=== PATIENT | female | born 1960 | race Caucasian/White ===

== ENCOUNTER 2019-02-28 06:22 | Observation (INO) | payer BC, OTHER ==
[2019-02-28 06:57] LABS: BASO # 0.1 K/uL (0.0-0.2); BASO % 0.9 % (0.0-2.0); EOS # 0.1 K/uL (0.0-0.7); EOS % 1.2 % (0.0-4.0); LYMPH # 2.4 K/uL (1.0-4.3); LYMPH % 29.2 % (20.0-40.0); MEAN CELL VOLUME 86.9 fL (81.0-99.0); MEAN CORPUSCULAR HEMOGLOBIN 28.8 pg (27.0-31.0); MEAN CORPUSCULAR HGB CONC 33.1 g/dL (33.0-37.0); MEAN PLATELET VOLUME 8.7 fL (7.2-11.7); MONO # 0.5 K/uL (0.0-0.8); MONO % 6.6 % (0.0-10.0); NEUT # 5.2 K/uL (1.8-7.0); NEUT % 62.1 % (50.0-75.0); RBC 4.53 Mil/uL (3.80-5.20); WHITE BLOOD COUNT 8.3 K/uL (4.8-10.8)
[2019-02-28 07:01] LABS: INR 1.1; PROTHROMBIN TIME 11.7 SECONDS (9.7-12.2)
[2019-02-28] MEDS ORDERED: Nitroglycerin 2% Ointment Foilpak UD TOP STA (07:19)
[2019-02-28 07:20] LABS: ALB/GLOB RATIO 1.3 (1.0-2.1); ALT/SGPT 11 U/L (9-52); AST/SGOT 29 U/L (14-36); BLOOD UREA NITROGEN 10 mg/dL (7-17); CALCIUM 8.9 mg/dl (8.6-10.4); GFR NON-AFRICAN AMERICAN > 60
[2019-02-28] MEDS ORDERED: Nitroglycerin 2% Ointment Foilpak UD TOP ONE (07:34)
[2019-02-28] MEDS ORDERED: Aluminum Hydroxide/Magnesium Hydroxide Susp (30 mL) PO STA (08:52)
--- NOTE | 2019-02-28 08:54 | C.PDOC ---
Time Seen by Provider: 02/28/19 07:08 Chief Complaint (Nursing): Chest Pain Past Medical History Vital Signs: Last Vital Signs Temp 98.9 F 02/28/19 06:34 Pulse 65 02/28/19 07:13 Resp 20 02/28/19 07:13 BP 146/59 L 02/28/19 07:13 Pulse Ox 98 02/28/19 07:13 - Medical History PMH: Diabetes, HTN, Hypercholesterolemia, Hypothyroidism Surgical History: Appendectomy - Social History Hx Tobacco Use: No Hx Alcohol Use: No Hx Substance Use: No - Immunization History Hx Tetanus Toxoid Vaccination: No Hx Influenza Vaccination: No Hx Pneumococcal Vaccination: No ED Course And Treatment - Laboratory Results Result Diagrams: 02/28/19 06:50 02/28/19 06:50 Lab Results: PT 11.7 SECONDS (9.7-12.2) 02/28/19 06:50 INR 1.1 02/28/19 06:50 APTT 30 SECONDS (21-34) 02/28/19 06:50 Troponin I < 0.0120 ng/mL (0.00-0.120) 02/28/19 06:50 Total Bilirubin 0.6 mg/dL (0.2-1.3) 02/28/19 06:50 AST 29 U/L (14-36) 02/28/19 06:50 ALT 11 U/L (9-52) 02/28/19 06:50 Alkaline Phosphatase 61 U/L (38-126) 02/28/19 06:50 Total Protein 7.2 g/dL (6.3-8.3) 02/28/19 06:50 Albumin 4.0 g/dL (3.5-5.0) 02/28/19 06:50 Globulin 3.1 gm/dL (2.2-3.9) 02/28/19 06:50 Albumin/Globulin Ratio 1.3 (1.0-2.1) 02/28/19 06:50 O2 Sat by Pulse Oximetry: 98 Medical Decision Making Medical Decision Making: Progress/Update: 8:52am : Spoke with Dr. Ford regarding the pts case. Disposition - Disposition
--- NOTE | 2019-02-28 08:55 | C.PDOC ---
History Of Present Illness 58 year old female presents for evaluation of intermittent chest pain that started today at midnight. Pt was seen by Dr. Ford who diagnosed her with unstable angina and advised the pt to visit the ED for possible admission if symptoms worsened/returned. Denies fever, chills, dyspnea, numbness, tingling, and any other associated symptoms. Time Seen by Provider: 02/28/19 07:08 Chief Complaint (Nursing): Chest Pain History Per: Patient History/Exam Limitations: no limitations Onset/Duration Of Symptoms: Hrs Current Symptoms Are (Timing): Still Present Associated Symptoms: denies: Nausea, Dyspnea Recent travel outside of the [place]: No Past Medical History Reviewed: Historical Data, Nursing Documentation, Vital Signs Vital Signs: Last Vital Signs Temp 98.9 F 02/28/19 06:34 Pulse 65 02/28/19 07:13 Resp 20 02/28/19 07:13 BP 146/59 L 02/28/19 07:13 Pulse Ox 98 02/28/19 07:13 - Medical History PMH: Diabetes, HTN, Hypercholesterolemia, Hypothyroidism Surgical History: Appendectomy Family History: States: Unknown Family Hx - Social History Hx Tobacco Use: No Hx Alcohol Use: No Hx Substance Use: No - Immunization History Hx Tetanus Toxoid Vaccination: No Hx Influenza Vaccination: No Hx Pneumococcal Vaccination: No Review Of Systems Except As Marked, All Systems Reviewed And Found Negative. Constitutional: Negative for: Fever, Chills Cardiovascular: Positive for: Chest Pain Respiratory: Negative for: Other ((-) dyspnea. ) Neurological: Negative for: Weakness, Numbness, Incoordination Physical Exam - Physical Exam Appears: Non-toxic, No Acute Distress Skin: Warm, Dry Head: Atraumatic, Normacephalic Eye(s): bilateral: Normal Inspection Oral Mucosa: Moist Neck: Normal ROM, Supple Chest: Symmetrical, No Deformity Cardiovascular: Rhythm Regular, No Murmur Respiratory: Normal Breath Sounds, No Rales, No Rhonchi, No Wheezing Gastrointestinal/Abdominal: Soft, Tenderness (mild epigastric tenderness.) Extremity: Bilateral: Atraumatic, Normal Color And Temperature, Normal ROM Neurological/Psych: Oriented x3, Normal Speech, Normal Cognition ED Course And Treatment - Laboratory Results Result Diagrams: 02/28/19 06:50 02/28/19 06:50 Lab Results: PT 11.7 SECONDS (9.7-12.2) 02/28/19 06:50 INR 1.1 02/28/19 06:50 APTT 30 SECONDS (21-34) 02/28/19 06:50 Troponin I < 0.0120 ng/mL (0.00-0.120) 02/28/19 06:50 Total Bilirubin 0.6 mg/dL (0.2-1.3) 02/28/19 06:50 AST 29 U/L (14-36) 02/28/19 06:50 ALT 11 U/L (9-52) 02/28/19 06:50 Alkaline Phosphatase 61 U/L (38-126) 02/28/19 06:50 Total Protein 7.2 g/dL (6.3-8.3) 02/28/19 06:50 Albumin 4.0 g/dL (3.5-5.0) 02/28/19 06:50 Globulin 3.1 gm/dL (2.2-3.9) 02/28/19 06:50 Albumin/Globulin Ratio 1.3 (1.0-2.1) 02/28/19 06:50 ECG: Interpreted By Me, Viewed By Me ECG Rhythm: Sinus Rhythm Interpretation Of ECG: no acute changes. O2 Sat by Pulse Oximetry: 98 (RA) Pulse Ox Interpretation: Normal - Other Rad CXR X-Ray: Viewed By Me, Read By Radiologist Interpretation: Findings: Mild venous congestion. Patchy increased markings at the lung bases. Tortuous aorta. Mild cardiomegaly. Degenerative changes in the spine and shoulders. Impression: Mild venous congestion. Patchy increased markings at the lung bases. Tortuous aorta. Mild cardiomegaly. Medical Decision Making Medical Decision Making: Initial plan: -EKG -Blood sent. -CXR -Nitro-bid - Tylenol Progress/Update: Re-eval: Pt continues to complain of epigastric pain, given Protonix and Maalox (-) first cardiac enzyme CXR neg results 8:52am : Spoke with Dr. Ford regarding the pts case, accepted to [facility] for observation. 8:58am : Spoke with medical coding specialist regarding pts case. 9:30 am; got phone call from admitting, in "on a blue list" , can't admit now, requested to admit to 9:50am : Spoke with Dr. Ale Traylor who agreed to admit the pt. Disposition - Disposition Disposition: HOSPITALIZED Disposition Time: 08:55 Condition: STABLE - Clinical Impression Clinical Impression: Chest pain, Epigastric pain - PA / STUDENT COUNSELLOR / Resident Statement MD/DO has reviewed & agrees with the documentation as recorded. - Scribe Statement The provider has reviewed the documentation as recorded by the Scribe (Shelbie Lemon) All medical record entries made by the Scribe were at my direction and personally dictated by me. I have reviewed the chart and agree that the record accurately reflects my personal performance of the history, physical exam, medical decision making, and the department course for this patient. I have also personally directed, reviewed, and agree with the discharge instructions and disposition. Decision To Admit - Pt Status Changed To: Hospital Disposition Of: Observation - . Bed Request Type: Telemetry Admitting Physician: Jose Luis Ford Jr. Patient Diagnosis: Chest pain, Epigastric pain
[2019-02-28] MEDS ORDERED: Alum-Mag Hydrox-Simethicone Susp (30 mL) ONE (09:01)
--- NOTE | 2019-02-28 09:02 | CP.PCM.HP ---
Past Patient History - Past Social History Smoking Status: Never Smoked - CARDIAC Hx Hypercholesterolemia: Yes Hx Hypertension: Yes - ENDOCRINE/METABOLIC Hx Hypothyroidism: Yes - PSYCHIATRIC Hx Substance Use: No - SURGICAL HISTORY Hx Appendectomy: Yes - ANESTHESIA Hx Anesthesia: Yes Hx Anesthesia Reactions: No Meds Allergies/Adverse Reactions: Allergies Allergy/AdvReac Type Severity Reaction Status Date / Time aspirin Allergy Verified 02/28/19 06:39 Penicillins Allergy Verified 02/28/19 06:39 Results - Vital Signs Recent Vital Signs: Last Vital Signs Temp 98.9 F 02/28/19 06:34 Pulse 65 02/28/19 07:13 Resp 20 02/28/19 07:13 BP 146/59 L 02/28/19 07:13 Pulse Ox 98 02/28/19 08:56 - Labs Result Diagrams: 02/28/19 06:50 02/28/19 06:50 Labs: Laboratory Results - last 24 hr 02/28/19 02/28/19 02/28/19 06:50 06:50 06:50 WBC 8.3 RBC 4.53 Hgb 13.0 Hct 39.4 MCV 86.9 MCH 28.8 MCHC 33.1 RDW 14.0 Plt Count 293 MPV 8.7 Neut % (Auto) 62.1 Lymph % (Auto) 29.2 [place] % (Auto) 6.6 Eos % (Auto) 1.2 Baso % (Auto) 0.9 Neut # (Auto) 5.2 Lymph # (Auto) 2.4 [place] # (Auto) 0.5 Eos # (Auto) 0.1 Baso # (Auto) 0.1 PT 11.7 INR 1.1 APTT 30 Sodium 135 Potassium 4.7 Chloride 100 Carbon Dioxide 25 Anion Gap 15 BUN 10 Creatinine 0.7 Est GFR ( Amer) > 60 Est GFR (Non-Af Amer) > 60 Random Glucose 163 H Calcium 8.9 Total Bilirubin 0.6 AST 29 ALT 11 Alkaline Phosphatase 61 Troponin I < 0.0120 Total Protein 7.2 Albumin 4.0 Globulin 3.1 Albumin/Globulin Ratio 1.3
--- NOTE | 2019-02-28 09:08 | RAD ---
Chest x-ray single frontal view History: Chest pain. Comparison: 02/28/2019 Findings: Mild venous congestion. Patchy increased markings at the lung bases. Tortuous aorta. Mild cardiomegaly. Degenerative changes in the spine and shoulders. Impression: Mild venous congestion. Patchy increased markings at the lung bases. Tortuous aorta. Mild cardiomegaly.
[2019-02-28] MEDS ORDERED: Glucagon Recombinant 1 mg Inj IM PRN (09:54)
[2019-02-28] MEDS ORDERED: Dextrose 50% SYRINGE Inj (50 ml) IV ONE (10:00)
[2019-02-28] MEDS ORDERED: Enoxaparin 30 mg Syringe SC SCH ×2 (10:00→10:08)
[2019-02-28] MEDS ORDERED: Enoxaparin 80 mg Syringe SC ONE (10:30)
--- NOTE | 2019-02-28 11:23 | CP.PCM.PCO ---
Physician Communication Note - Physician Communication Note Physician Communication Note: Change of Service to accepting physician Dr. Reginald Traylor
[2019-02-28] MEDS: (Novolin R) Insulin Human Regular 100 units/ml vial SC SCH ×3 (11:38→21:53)
[2019-02-28] MEDS ORDERED: (Novolin R) Insulin Human Regular 100 units/ml vial ONE (11:47)
--- NOTE | 2019-02-28 11:55 | CP.PCM.PN ---
Subjective - Date & Time of Evaluation Date of Evaluation: 02/28/19 Time of Evaluation: 08:00 - Subjective Subjective: Medicine Progress Note for Dr. Reginald Traylor: Patient was seen and examined at bedside in the ER. Patient states she started to have chest pain at 2am which woke her up from her sleep. Patient states the pain is located midsternal with no radiation. Pain feels like a pulsating, 7- 8/10. The pain comes and goes and currently the patient denies chest pain. Patient states she has also been She denies shortness of breath, nausea, vomitin g, diarrhea, constipation, fever, chills and lightheadedness. Past Medical History: HTN; HLD; Diabetes Type II; Hypothyroid Past Surgical History: Thyroidectomy (25 years ago); appendectomy; Hysterectomy Medications: Metformin 850mg bid; Glipizide 10mg daily; Levothyroxine 150mg daily; Losartan 50mg daily Allergies: Aspirin Social History: Lives with son; quit smoking 8 years ago, smoked for 12 years about 5 cigarettes per day. Denies alcohol or illicit drug use. Works as a homemaker. [place] (son) # [phone] Objective - Vital Signs/Intake and Output Vital Signs (last 24 hours): Temp Pulse Resp BP Pulse Ox 98.9 F 84 20 108/59 L 98 02/28/19 06:34 02/28/19 11:20 02/28/19 11:20 02/28/19 11:20 02/28/19 09:52 - Medications Medications: Current Medications Acetaminophen (Tylenol 325mg Tab) 650 mg PO Q6 PRN PRN Reason: Pain, moderate (4-7) Clopidogrel Bisulfate (Plavix) 75 mg PO DAILY [facility] Last Admin: 02/28/19 11:19 Dose: 75 mg Dextrose (Glutose 15) 0 gm PO ONCE PRN; Protocol PRN Reason: Hypoglycemia Protocol Enoxaparin Sodium (Lovenox) 80 mg SC BID [facility] Glipizide (Glucotrol) 10 mg PO DAILY [facility] Last Admin: 02/28/19 11:16 Dose: Not Given Glucagon (Glucagen Diagnostic Kit) 0 mg IM STAT PRN; Protocol PRN Reason: Hypoglycemia Protocol Dextrose (Dextrose 5% In Water 1000 Ml) 1,000 mls @ 0 mls/hr IV .Q0M PRN; Protocol PRN Reason: Hypoglycemia Protocol Insulin Human Regular (Novolin R) 0 unit SC ACHS [facility]; Protocol Last Admin: 02/28/19 11:38 Dose: 2 unit Levothyroxine Sodium (Synthroid) 150 mcg PO DAILY [facility] Losartan Potassium (Cozaar) 50 mg PO DAILY [facility] Last Admin: 02/28/19 11:16 Dose: Not Given Rosuvastatin Calcium (Crestor) 5 mg PO HS [facility] - Labs Labs: 02/28/19 06:50 02/28/19 06:50 PT 11.7 SECONDS (9.7-12.2) 02/28/19 06:50 INR 1.1 02/28/19 06:50 APTT 30 SECONDS (21-34) 02/28/19 06:50 - Constitutional Appears: No Acute Distress - Head Exam Head Exam: ATRAUMATIC, NORMAL INSPECTION - Eye Exam Eye Exam: EOMI, Normal appearance, PERRL Pupil Exam: NORMAL ACCOMODATION - ENT Exam ENT Exam: Mucous Membranes Moist - Respiratory Exam Respiratory Exam: Clear to Ausculation Bilateral, NORMAL BREATHING PATTERN - Cardiovascular Exam Cardiovascular Exam: REGULAR RHYTHM, +S1, +S2 Additional comments: tender to palpation - GI/Abdominal Exam GI & Abdominal Exam: Soft, Normal Bowel Sounds. absent: Tenderness - Extremities Exam Extremities Exam: Normal Inspection. absent: Joint Swelling, Pedal Edema, Tenderness - Neurological Exam Neurological Exam: Alert, Awake, Oriented x3 - Psychiatric Exam Psychiatric exam: Normal Affect - Skin Skin Exam: Normal Color Assessment and Plan - Assessment and Plan (Free Text) Assessment: Chest Pain - stable, denies current pain - Cardiology Consult: Dr. Bhatti --> help appreciated * Nuclear Stress Test Saturday03/02/19 * NPO after midnight * Plavix 75mg daily * Lovenox 80mg bid - Trop negative; f/u Trop x2 - ProBNP 29.2 - f/u ECHO - Chest Xray: Mild venous congestion; patchy increased markings at the lung bases. Tortuous aorta; mild cardiomegaly History of HTN - Losartan 50mg po daily History of HLD - Crestor 5mg HS - Lipid Panel: Total Cholesterol 152; LDL 94; HDL 53; Triglycerides History of Hypothyroid s/p thyroidectomy - Levothyroixine 150mg daily - TSH 0.53; free T4 1.56 History of Diabetes - f/u hA1c - Medications * Metformin - hold * Glipizide 10mg daily * Regular Insulin SC - Accuchecks; hypoglycemia protocol
[2019-02-28 12:09] LABS: B-TYPE NATRIURETIC PEPTIDE 29.2 pg/mL (0-900)
--- NOTE | 2019-02-28 13:09 | CP.PCM.CON ---
<DaquanBeata SBaljit - Last Filed: 02/28/19 13:06> History of Present Illness - History of Present Illness History of Present Illness: Cardiology Consult Note: Patient was seen and examined at bedside in the ER. Patient states she started to have chest pain at 2am which woke her up from her sleep. Patient states the pain is located midsternal with no radiation. Pain feels like a pulsating, 7- 8/10. The pain comes and goes and currently the patient denies chest pain. Patient states she has also been She denies shortness of breath, nausea, vomiting, diarrhea, constipation, fever, chills and lightheadedness. Past Medical History: HTN; HLD; Diabetes Type II; Hypothyroid Past Surgical History: Thyroidectomy (25 years ago); appendectomy; Hysterectomy Medications: Metformin 850mg bid; Glipizide 10mg daily; Levothyroxine 150mg daily; Losartan 50mg daily Allergies: Aspirin Social History: Lives with son; quit smoking 8 years ago, smoked for 12 years about 5 cigarettes per day. Denies alcohol or illicit drug use. Works as a homemaker. [place] (son) # [phone] Review of Systems - Constitutional Constitutional: absent: Chills, Fever - EENT Ears: absent: Dizziness - Cardiovascular Cardiovascular: absent: Chest Pain, Chest Pain with Activity, Dyspnea, Dyspnea on Exertion, Edema, Leg Edema, Palpitations, Pedal Edema, Syncope - Respiratory Respiratory: absent: Cough, Dyspnea - Gastrointestinal Gastrointestinal: absent: Constipation, Diarrhea, Nausea, Vomiting - Genitourinary Genitourinary: absent: Dysuria - Musculoskeletal Musculoskeletal: absent: Numbness, Tingling - Neurological Neurological: absent: Dizziness - Endocrine Endocrine: absent: Palpitations Past Patient History - Past Social History Smoking Status: Never Smoked - CARDIAC Hx Hypercholesterolemia: Yes Hx Hypertension: Yes - ENDOCRINE/METABOLIC Hx Hypothyroidism: Yes - PSYCHIATRIC Hx Substance Use: No - SURGICAL HISTORY Hx Appendectomy: Yes - ANESTHESIA Hx Anesthesia: Yes Hx Anesthesia Reactions: No Meds Allergies/Adverse Reactions: Allergies Allergy/AdvReac Type Severity Reaction Status Date / Time aspirin Allergy Verified 02/28/19 06:39 Penicillins Allergy Verified 02/28/19 06:39 - Medications Medications: Current Medications Acetaminophen (Tylenol 325mg Tab) 650 mg PO Q6 PRN PRN Reason: Pain, moderate (4-7) Clopidogrel Bisulfate (Plavix) 75 mg PO DAILY [facility] Last Admin: 02/28/19 11:19 Dose: 75 mg Dextrose (Glutose 15) 0 gm PO ONCE PRN; Protocol PRN Reason: Hypoglycemia Protocol Enoxaparin Sodium (Lovenox) 80 mg SC BID [facility] Glipizide (Glucotrol) 10 mg PO DAILY [facility] Last Admin: 02/28/19 11:16 Dose: Not Given Glucagon (Glucagen Diagnostic Kit) 0 mg IM STAT PRN; Protocol PRN Reason: Hypoglycemia Protocol Dextrose (Dextrose 5% In Water 1000 Ml) 1,000 mls @ 0 mls/hr IV .Q0M PRN; Protocol PRN Reason: Hypoglycemia Protocol Insulin Human Regular (Novolin R) 0 unit SC [facility]; Protocol Last Admin: 02/28/19 11:38 Dose: 2 unit Levothyroxine Sodium (Synthroid) 150 mcg PO DAILY [facility] Losartan Potassium (Cozaar) 50 mg PO DAILY [facility] Last Admin: 02/28/19 11:16 Dose: Not Given Rosuvastatin Calcium (Crestor) 5 mg PO HS [facility] Physical Exam - Constitutional Appears: Well, No Acute Distress - Head Exam Head Exam: ATRAUMATIC, NORMAL INSPECTION, NORMOCEPHALIC - Eye Exam Eye Exam: EOMI, Normal appearance, PERRL Pupil Exam: NORMAL ACCOMODATION - ENT Exam ENT Exam: Mucous Membranes Moist - Respiratory Exam Respiratory Exam: Clear to Auscultation Bilateral, NORMAL BREATHING PATTERN - Cardiovascular Exam Cardiovascular Exam: REGULAR RHYTHM, +S1, +S2 Additional comments: pain to palpation - GI/Abdominal Exam GI & Abdominal Exam: Normal Bowel Sounds, Soft. absent: Tenderness - Extremities Exam Extremities exam: Positive for: normal inspection. Negative for: joint swelling, pedal edema, tenderness - Neurological Exam Neurological exam: Alert, Oriented x3 - Psychiatric Exam Psychiatric exam: Normal Affect, Normal Mood - Skin Skin Exam: Normal Color Results - Vital Signs Recent Vital Signs: Last Vital Signs Temp 97.7 F 02/28/19 12:15 Pulse 83 02/28/19 12:15 Resp 20 02/28/19 12:15 BP 114/69 02/28/19 12:15 Pulse Ox 96 02/28/19 12:15 - Labs Result Diagrams: 02/28/19 06:50 02/28/19 06:50 Labs: Laboratory Results - last 24 hr 02/28/19 02/28/19 02/28/19 06:50 06:50 06:50 WBC 8.3 RBC 4.53 Hgb 13.0 Hct 39.4 MCV 86.9 MCH 28.8 MCHC 33.1 RDW 14.0 Plt Count 293 MPV 8.7 Neut % (Auto) 62.1 Lymph % (Auto) 29.2 [place] % (Auto) 6.6 Eos % (Auto) 1.2 Baso % (Auto) 0.9 Neut # (Auto) 5.2 Lymph # (Auto) 2.4 [place] # (Auto) 0.5 Eos # (Auto) 0.1 Baso # (Auto) 0.1 PT 11.7 INR 1.1 APTT 30 Sodium 135 Potassium 4.7 Chloride 100 Carbon Dioxide 25 Anion Gap 15 BUN 10 Creatinine 0.7 Est GFR ( Amer) > 60 Est GFR (Non-Af Amer) > 60 POC Glucose (mg/dL) Random Glucose 163 H Calcium 8.9 Total Bilirubin 0.6 AST 29 ALT 11 Alkaline Phosphatase 61 Troponin I < 0.0120 NT-Pro-B Natriuret Pep Total Protein 7.2 Albumin 4.0 Globulin 3.1 Albumin/Globulin Ratio 1.3 Triglycerides Cholesterol LDL Cholesterol Direct HDL Cholesterol Free T4 TSH 3rd Generation 02/28/19 02/28/19 02/28/19 11:31 11:41 11:41 WBC RBC Hgb Hct MCV MCH MCHC RDW Plt Count MPV Neut % (Auto) Lymph % (Auto) [place] % (Auto) Eos % (Auto) Baso % (Auto) Neut # (Auto) Lymph # (Auto) [place] # (Auto) Eos # (Auto) Baso # (Auto) PT INR APTT Sodium Potassium Chloride Carbon Dioxide Anion Gap BUN Creatinine Est GFR ( Amer) Est GFR (Non-Af Amer) POC Glucose (mg/dL) 194 H Random Glucose Calcium Total Bilirubin AST ALT Alkaline Phosphatase Troponin I NT-Pro-B Natriuret Pep 29.2 Total Protein Albumin Globulin Albumin/Globulin Ratio Triglycerides 92 Cholesterol 152 LDL Cholesterol Direct 94 HDL Cholesterol 53 Free T4 1.56 TSH 3rd Generation 0.53 Assessment & Plan - Assessment and Plan (Free Text) Assessment: Chest Pain - stable, denies current pain - Cardiology Consult: Dr. Bhatti --> help appreciated * Nuclear Stress Test Saturday03/02/19 * NPO after midnight * Plavix 75mg daily * Lovenox 80mg bid - Trop negative; f/u Trop x2 - ProBNP 29.2 - f/u ECHO - Chest Xray: Mild venous congestion; patchy increased markings at the lung bases. Tortuous aorta; mild cardiomegaly History of HTN - Losartan 50mg po daily History of HLD - Crestor 5mg HS - Lipid Panel: Total Cholesterol 152; LDL 94; HDL 53; Triglycerides History of Hypothyroid s/p thyroidectomy - Levothyroixine 150mg daily - TSH 0.53; free T4 1.56 History of Diabetes - f/u hA1c - Medications * Metformin - hold * Glipizide 10mg daily * Regular Insulin SC - Accuchecks; hypoglycemia protocol Case discussed with Dr. Davy Butt PGY-2 <Deangelo Bhatti - Last Filed: 02/28/19 23:07> Meds - Medications Medications: Current Medications Acetaminophen (Tylenol 325mg Tab) 650 mg PO Q6 PRN PRN Reason: Pain, moderate (4-7) Clopidogrel Bisulfate (Plavix) 75 mg PO DAILY [facility] Last Admin: 02/28/19 11:19 Dose: 75 mg Dextrose (Glutose 15) 0 gm PO ONCE PRN; Protocol PRN Reason: Hypoglycemia Protocol Enoxaparin Sodium (Lovenox) 80 mg SC Q12H [facility] Last Admin: 02/28/19 21:42 Dose: 80 mg Glipizide (Glucotrol) 10 mg PO DAILY [facility] Last Admin: 02/28/19 11:16 Dose: Not Given Glucagon (Glucagen Diagnostic Kit) 0 mg IM STAT PRN; Protocol PRN Reason: Hypoglycemia Protocol Dextrose (Dextrose 5% In Water 1000 Ml) 1,000 mls @ 0 mls/hr IV .Q0M PRN; Protocol PRN Reason: Hypoglycemia Protocol Insulin Human Regular (Novolin R) 0 unit SC ACHS [facility]; Protocol Last Admin: 02/28/19 21:53 Dose: Not Given Levothyroxine Sodium (Synthroid) 150 mcg PO DAILY [facility] Losartan Potassium (Cozaar) 50 mg PO DAILY [facility] Last Admin: 02/28/19 11:16 Dose: Not Given Pneumococcal Polyvalent Vaccine (Pneumovax 23 Vaccine) 0.5 ml IM .ONCE ONE Stop: 03/02/19 10:01 Rosuvastatin Calcium (Crestor) 5 mg PO HS [facility] Last Admin: 02/28/19 21:42 Dose: 5 mg Results - Vital Signs Recent Vital Signs: Last Vital Signs Temp 97.9 F 02/28/19 15:00 Pulse 69 02/28/19 17:00 Resp 20 02/28/19 15:00 BP 109/66 02/28/19 15:00 Pulse Ox 98 02/28/19 20:00 - Labs Result Diagrams: 02/28/19 06:50 02/28/19 06:50 Labs: Laboratory Results - last 24 hr 02/28/19 02/28/19 02/28/19 06:50 06:50 06:50 WBC 8.3 RBC 4.53 Hgb 13.0 Hct 39.4 MCV 86.9 MCH 28.8 MCHC 33.1 RDW 14.0 Plt Count 293 MPV 8.7 Neut % (Auto) 62.1 Lymph % (Auto) 29.2 [place] % (Auto) 6.6 Eos % (Auto) 1.2 Baso % (Auto) 0.9 Neut # (Auto) 5.2 Lymph # (Auto) 2.4 [place] # (Auto) 0.5 Eos # (Auto) 0.1 Baso # (Auto) 0.1 PT 11.7 INR 1.1 APTT 30 Sodium 135 Potassium 4.7 Chloride 100 Carbon Dioxide 25 Anion Gap 15 BUN 10 Creatinine 0.7 Est GFR ( Amer) > 60 Est GFR (Non-Af Amer) > 60 POC Glucose (mg/dL) Random Glucose 163 H Calcium 8.9 Total Bilirubin 0.6 AST 29 ALT 11 Alkaline Phosphatase 61 Total Creatine Kinase CK-MB (Mass) Troponin I < 0.0120 NT-Pro-B Natriuret Pep Total Protein 7.2 Albumin 4.0 Globulin 3.1 Albumin/Globulin Ratio 1.3 Triglycerides Cholesterol LDL Cholesterol Direct HDL Cholesterol Free T4 TSH 3rd Generation 02/28/19 02/28/19 02/28/19 11:31 11:41 11:41 WBC RBC Hgb Hct MCV MCH MCHC RDW Plt Count MPV Neut % (Auto) Lymph % (Auto) [place] % (Auto) Eos % (Auto) Baso % (Auto) Neut # (Auto) Lymph # (Auto) [place] # (Auto) Eos # (Auto) Baso # (Auto) PT INR APTT Sodium Potassium Chloride Carbon Dioxide Anion Gap BUN Creatinine Est GFR ( Amer) Est GFR (Non-Af Amer) POC Glucose (mg/dL) 194 H Random Glucose Calcium Total Bilirubin AST ALT Alkaline Phosphatase Total Creatine Kinase CK-MB (Mass) Troponin I NT-Pro-B Natriuret Pep 29.2 Total Protein Albumin Globulin Albumin/Globulin Ratio Triglycerides 92 Cholesterol 152 LDL Cholesterol Direct 94 HDL Cholesterol 53 Free T4 1.56 TSH 3rd Generation 0.53 02/28/19 02/28/19 14:08 16:17 WBC RBC Hgb Hct MCV MCH MCHC RDW Plt Count MPV Neut % (Auto) Lymph % (Auto) [place] % (Auto) Eos % (Auto) Baso % (Auto) Neut # (Auto) Lymph # (Auto) [place] # (Auto) Eos # (Auto) Baso # (Auto) PT INR APTT Sodium Potassium Chloride Carbon Dioxide Anion Gap BUN Creatinine Est GFR ( Amer) Est GFR (Non-Af Amer) POC Glucose (mg/dL) 151 H Random Glucose Calcium Total Bilirubin AST ALT Alkaline Phosphatase Total Creatine Kinase 52 CK-MB (Mass) 0.37 Troponin I < 0.0120 NT-Pro-B Natriuret Pep Total Protein Albumin Globulin Albumin/Globulin Ratio Triglycerides Cholesterol LDL Cholesterol Direct HDL Cholesterol Free T4 TSH 3rd Generation Assessment & Plan - Assessment and Plan (Free Text) Assessment: Patient seen and evaluated personally by me. Plan of care d/w the medical accountant and as documented
[2019-02-28 14:42] LABS: CK-MB 0.37 ng/mL (0.0-3.38)
--- NOTE | 2019-02-28 15:32 | CP.PCM.HP ---
History of Present Illness - History of Present Illness History of Present Illness: 58-year-old female with history of hypertension history of hyperlipidemia history of diabetes history of hypothyroidism ex-smoker non-EtOH abuser came because of chest pain started in the middle of night eventually patient was brought to the emergency room pain was a retrosternal dull and neck are without radiations without referring without nausea vomiting sweating no fever no chills eventually patient admitted to the hospital patient is history of allergy patient is seen by the front office help patient has been given blood test and the EKG in the ER which is negative Allergies aspirin Past medical history history of hypertension history of hyperlipidemia history of hypothyroidism past surgical history history of thyroidectomy appendectomy and hysterectomy medications Metformin glipizide Levoxyl losartan Plavix Social history used to smoke quit 12 years ago alcohol user nondrug abuser Present on Admission - Present on Admission Any Indicators Present on Admission: No Past Patient History - Past Social History Smoking Status: Never Smoked - CARDIAC Hx Hypercholesterolemia: Yes Hx Hypertension: Yes - ENDOCRINE/METABOLIC Hx Hypothyroidism: Yes - PSYCHIATRIC Hx Substance Use: No - SURGICAL HISTORY Hx Appendectomy: Yes - ANESTHESIA Hx Anesthesia: Yes Hx Anesthesia Reactions: No Meds Allergies/Adverse Reactions: Allergies Allergy/AdvReac Type Severity Reaction Status Date / Time aspirin Allergy Verified 02/28/19 06:39 Penicillins Allergy Verified 02/28/19 06:39 Physical Exam - Constitutional Appears: Well - Head Exam Head Exam: ATRAUMATIC, NORMAL INSPECTION, NORMOCEPHALIC - Eye Exam Eye Exam: EOMI, Normal appearance, PERRL Pupil Exam: NORMAL ACCOMODATION, PERRL - ENT Exam ENT Exam: Mucous Membranes Moist, Normal Exam - Neck Exam Neck exam: Positive for: Normal Inspection - Respiratory Exam Respiratory Exam: Decreased Breath Sounds - Cardiovascular Exam Cardiovascular Exam: REGULAR RHYTHM, +S1, +S2 - GI/Abdominal Exam GI & Abdominal Exam: Diminished Bowel Sounds, Soft - Rectal Exam Rectal Exam: Deferred - Neurological Exam Neurological exam: Oriented x3 Results - Vital Signs Recent Vital Signs: Last Vital Signs Temp 97.7 F 02/28/19 12:15 Pulse 81 02/28/19 12:40 Resp 20 02/28/19 12:15 BP 114/69 02/28/19 12:15 Pulse Ox 96 02/28/19 12:15 - Labs Result Diagrams: 02/28/19 06:50 02/28/19 06:50 Labs: Laboratory Results - last 24 hr 02/28/19 02/28/19 02/28/19 06:50 06:50 06:50 WBC 8.3 RBC 4.53 Hgb 13.0 Hct 39.4 MCV 86.9 MCH 28.8 MCHC 33.1 RDW 14.0 Plt Count 293 MPV 8.7 Neut % (Auto) 62.1 Lymph % (Auto) 29.2 Lea % (Auto) 6.6 Eos % (Auto) 1.2 Baso % (Auto) 0.9 Neut # (Auto) 5.2 Lymph # (Auto) 2.4 Lea # (Auto) 0.5 Eos # (Auto) 0.1 Baso # (Auto) 0.1 PT 11.7 INR 1.1 APTT 30 Sodium 135 Potassium 4.7 Chloride 100 Carbon Dioxide 25 Anion Gap 15 BUN 10 Creatinine 0.7 Est GFR ( Amer) > 60 Est GFR (Non-Af Amer) > 60 POC Glucose (mg/dL) Random Glucose 163 H Calcium 8.9 Total Bilirubin 0.6 AST 29 ALT 11 Alkaline Phosphatase 61 Total Creatine Kinase CK-MB (Mass) Troponin I < 0.0120 NT-Pro-B Natriuret Pep Total Protein 7.2 Albumin 4.0 Globulin 3.1 Albumin/Globulin Ratio 1.3 Triglycerides Cholesterol LDL Cholesterol Direct HDL Cholesterol Free T4 TSH 3rd Generation 02/28/19 02/28/19 02/28/19 11:31 11:41 11:41 WBC RBC Hgb Hct MCV MCH MCHC RDW Plt Count MPV Neut % (Auto) Lymph % (Auto) Lea % (Auto) Eos % (Auto) Baso % (Auto) Neut # (Auto) Lymph # (Auto) Lea # (Auto) Eos # (Auto) Baso # (Auto) PT INR APTT Sodium Potassium Chloride Carbon Dioxide Anion Gap BUN Creatinine Est GFR ( Amer) Est GFR (Non-Af Amer) POC Glucose (mg/dL) 194 H Random Glucose Calcium Total Bilirubin AST ALT Alkaline Phosphatase Total Creatine Kinase CK-MB (Mass) Troponin I NT-Pro-B Natriuret Pep 29.2 Total Protein Albumin Globulin Albumin/Globulin Ratio Triglycerides 92 Cholesterol 152 LDL Cholesterol Direct 94 HDL Cholesterol 53 Free T4 1.56 TSH 3rd Generation 0.53 02/28/19 14:08 WBC RBC Hgb Hct MCV MCH MCHC RDW Plt Count MPV Neut % (Auto) Lymph % (Auto) Lea % (Auto) Eos % (Auto) Baso % (Auto) Neut # (Auto) Lymph # (Auto) Lea # (Auto) Eos # (Auto) Baso # (Auto) PT INR APTT Sodium Potassium Chloride Carbon Dioxide Anion Gap BUN Creatinine Est GFR ( Amer) Est GFR (Non-Af Amer) POC Glucose (mg/dL) Random Glucose Calcium Total Bilirubin AST ALT Alkaline Phosphatase Total Creatine Kinase 52 CK-MB (Mass) 0.37 Troponin I < 0.0120 NT-Pro-B Natriuret Pep Total Protein Albumin Globulin Albumin/Globulin Ratio Triglycerides Cholesterol LDL Cholesterol Direct HDL Cholesterol Free T4 TSH 3rd Generation Assessment & Plan - Assessment and Plan (Free Text) Plan: [place] x3 Cardiology consult with Dr. Bhatti Echocardiogram N.p.o. Heart healthy diet Losartan 50 mg Rosuvastatin 5 mg Glipizide 10 mg Lovenox 80 subcu twice daily Nitroglycerin Plavix Levoxine All other medication as ordered Vital signs Medications reviewed TSH normal
[2019-02-28] MEDS: Enoxaparin 80 mg Syringe SC SCH (21:42)
[2019-03-01 00:45] LABS: CK-MB 0.28 ng/mL (0.0-3.38)
[2019-03-01] MEDS: Levothyroxine 150 MCG TAB PO SCH ×2 (06:35→10:00)
[2019-03-01] MEDS: Enoxaparin 80 mg Syringe SC SCH ×2 (08:25→20:08)
[2019-03-01] MEDS: (Novolin R) Insulin Human Regular 100 units/ml vial SC SCH ×4 (08:25→21:56)
--- NOTE | 2019-03-01 20:54 | CP.PCM.PN ---
Subjective - Date & Time of Evaluation Date of Evaluation: 03/01/19 - Subjective Subjective: patient seen today no nausea, no vomiting, no dizziness, no diarrhea, no fever, no shortness of breath Objective - Vital Signs/Intake and Output Vital Signs (last 24 hours): Temp Pulse Resp BP Pulse Ox 98.0 F 78 20 116/68 95 03/01/19 16:00 03/01/19 16:00 03/01/19 16:00 03/01/19 16:00 03/01/19 16:00 - Medications Medications: Current Medications Acetaminophen (Tylenol 325mg Tab) 650 mg PO Q6 PRN PRN Reason: Pain, moderate (4-7) Clopidogrel Bisulfate (Plavix) 75 mg PO DAILY [facility] Last Admin: 03/01/19 09:11 Dose: 75 mg Dextrose (Glutose 15) 0 gm PO ONCE PRN; Protocol PRN Reason: Hypoglycemia Protocol Enoxaparin Sodium (Lovenox) 80 mg SC Q12H [facility] Last Admin: 03/01/19 20:08 Dose: 80 mg Glipizide (Glucotrol) 10 mg PO DAILY [facility] Last Admin: 03/01/19 09:11 Dose: 10 mg Glucagon (Glucagen Diagnostic Kit) 0 mg IM STAT PRN; Protocol PRN Reason: Hypoglycemia Protocol Dextrose (Dextrose 5% In Water 1000 Ml) 1,000 mls @ 0 mls/hr IV .Q0M PRN; Protocol PRN Reason: Hypoglycemia Protocol Insulin Human Regular (Novolin R) 0 unit SC ACHS [facility]; Protocol Last Admin: 03/01/19 17:07 Dose: Not Given Levothyroxine Sodium (Synthroid) 150 mcg PO DAILY [facility] Last Admin: 03/01/19 10:00 Dose: Not Given Losartan Potassium (Cozaar) 50 mg PO DAILY [facility] Last Admin: 03/01/19 09:11 Dose: 50 mg Pneumococcal Polyvalent Vaccine (Pneumovax 23 Vaccine) 0.5 ml IM .ONCE ONE Stop: 03/02/19 10:01 Rosuvastatin Calcium (Crestor) 5 mg PO HS [facility] Last Admin: 02/28/19 21:42 Dose: 5 mg - Labs Labs: 02/28/19 06:50 02/28/19 06:50 PT 11.7 SECONDS (9.7-12.2) 02/28/19 06:50 INR 1.1 02/28/19 06:50 APTT 30 SECONDS (21-34) 02/28/19 06:50 - Constitutional Appears: Well - Head Exam Head Exam: ATRAUMATIC, NORMAL INSPECTION, NORMOCEPHALIC - Eye Exam Eye Exam: EOMI, Normal appearance, PERRL Pupil Exam: NORMAL ACCOMODATION, PERRL - ENT Exam ENT Exam: Mucous Membranes Moist, Normal Exam - Neck Exam Neck Exam: Full ROM, Normal Inspection. absent: Lymphadenopathy - Respiratory Exam Respiratory Exam: Decreased Breath Sounds - Cardiovascular Exam Cardiovascular Exam: REGULAR RHYTHM, +S1, +S2 - GI/Abdominal Exam GI & Abdominal Exam: Soft, Diminished Bowel Sounds - Rectal Exam Rectal Exam: Deferred - Neurological Exam Neurological Exam: Oriented x3 Assessment and Plan - Assessment and Plan (Free Text) Plan: protonix lovenox aspirin cardiology consult family sitting at bedside spoke to family through costume seamstress, speaks persian bella crestor dextrose glucagen diagnostic kit glucotrol glutose 15 lovenox novolin R plavis synthroid tylenol medications reviewed vitals reviewed labs reivewed
--- NOTE | 2019-03-01 22:43 | CP.PCM.PN ---
Subjective - Date & Time of Evaluation Date of Evaluation: 03/01/19 Time of Evaluation: 16:15 - Subjective Subjective: Patient for stress test in am Objective - Vital Signs/Intake and Output Vital Signs (last 24 hours): Temp Pulse Resp BP Pulse Ox 98.1 F 69 18 133/74 95 03/01/19 22:00 03/01/19 22:00 03/01/19 22:00 03/01/19 22:00 03/01/19 16:00 - Medications Medications: Current Medications Acetaminophen (Tylenol 325mg Tab) 650 mg PO Q6 PRN PRN Reason: Pain, moderate (4-7) Clopidogrel Bisulfate (Plavix) 75 mg PO DAILY [facility] Last Admin: 03/01/19 09:11 Dose: 75 mg Dextrose (Glutose 15) 0 gm PO ONCE PRN; Protocol PRN Reason: Hypoglycemia Protocol Enoxaparin Sodium (Lovenox) 80 mg SC Q12H [facility] Last Admin: 03/01/19 20:08 Dose: 80 mg Glipizide (Glucotrol) 10 mg PO DAILY [facility] Last Admin: 03/01/19 09:11 Dose: 10 mg Glucagon (Glucagen Diagnostic Kit) 0 mg IM STAT PRN; Protocol PRN Reason: Hypoglycemia Protocol Dextrose (Dextrose 5% In Water 1000 Ml) 1,000 mls @ 0 mls/hr IV .Q0M PRN; Protocol PRN Reason: Hypoglycemia Protocol Insulin Human Regular (Novolin R) 0 unit SC ACHS [facility]; Protocol Last Admin: 03/01/19 21:56 Dose: Not Given Levothyroxine Sodium (Synthroid) 150 mcg PO DAILY [facility] Last Admin: 03/01/19 10:00 Dose: Not Given Losartan Potassium (Cozaar) 50 mg PO DAILY [facility] Last Admin: 03/01/19 09:11 Dose: 50 mg Pneumococcal Polyvalent Vaccine (Pneumovax 23 Vaccine) 0.5 ml IM .ONCE ONE Stop: 03/02/19 10:01 Rosuvastatin Calcium (Crestor) 5 mg PO HS [facility] Last Admin: 03/01/19 22:00 Dose: 5 mg - Labs Labs: 02/28/19 06:50 02/28/19 06:50 PT 11.7 SECONDS (9.7-12.2) 02/28/19 06:50 INR 1.1 02/28/19 06:50 APTT 30 SECONDS (21-34) 02/28/19 06:50
[2019-03-02] MEDS: (Novolin R) Insulin Human Regular 100 units/ml vial SC SCH ×4 (07:30→21:32)
[2019-03-02] MEDS ORDERED: Caffeine Citrated **INJ** 20 MG/ML IV ONE (07:57)
[2019-03-02] MEDS: Enoxaparin 80 mg Syringe SC SCH (08:00)
--- NOTE | 2019-03-02 08:22 | CP.PCM.PN ---
Subjective - Date & Time of Evaluation Date of Evaluation: 03/02/19 Time of Evaluation: 08:00 - Subjective Subjective: Medicine Progress for Dr. Reginald Traylor Patient was seen and examined at bedside. Patient denies chest pain, shortness of breath, nausea, vomiting, diarrhea, constipation, fever, chills and lightheadedness. Objective - Vital Signs/Intake and Output Vital Signs (last 24 hours): Temp Pulse Resp BP Pulse Ox 98.2 F 69 20 108/63 96 03/02/19 07:00 03/02/19 07:00 03/02/19 07:00 03/02/19 07:00 03/02/19 07:00 - Medications Medications: Current Medications Acetaminophen (Tylenol 325mg Tab) 650 mg PO Q6 PRN PRN Reason: Pain, moderate (4-7) Clopidogrel Bisulfate (Plavix) 75 mg PO DAILY [facility] Last Admin: 03/01/19 09:11 Dose: 75 mg Dextrose (Glutose 15) 0 gm PO ONCE PRN; Protocol PRN Reason: Hypoglycemia Protocol Enoxaparin Sodium (Lovenox) 80 mg SC Q12H [facility] Last Admin: 03/01/19 20:08 Dose: 80 mg Glipizide (Glucotrol) 10 mg PO DAILY [facility] Last Admin: 03/01/19 09:11 Dose: 10 mg Glucagon (Glucagen Diagnostic Kit) 0 mg IM STAT PRN; Protocol PRN Reason: Hypoglycemia Protocol Dextrose (Dextrose 5% In Water 1000 Ml) 1,000 mls @ 0 mls/hr IV .Q0M PRN; Protocol PRN Reason: Hypoglycemia Protocol Insulin Human Regular (Novolin R) 0 unit SC [facility]; Protocol Last Admin: 03/01/19 21:56 Dose: Not Given Levothyroxine Sodium (Synthroid) 150 mcg PO DAILY [facility] Last Admin: 03/01/19 10:00 Dose: Not Given Losartan Potassium (Cozaar) 50 mg PO DAILY [facility] Last Admin: 03/01/19 09:11 Dose: 50 mg Pneumococcal Polyvalent Vaccine (Pneumovax 23 Vaccine) 0.5 ml IM .ONCE ONE Stop: 03/02/19 10:01 Rosuvastatin Calcium (Crestor) 5 mg PO HS [facility] Last Admin: 03/01/19 22:00 Dose: 5 mg - Labs Labs: 02/28/19 06:50 02/28/19 06:50 PT 11.7 SECONDS (9.7-12.2) 02/28/19 06:50 INR 1.1 02/28/19 06:50 APTT 30 SECONDS (21-34) 02/28/19 06:50 - Constitutional Appears: No Acute Distress - Head Exam Head Exam: ATRAUMATIC, NORMAL INSPECTION - Eye Exam Eye Exam: EOMI, Normal appearance - ENT Exam ENT Exam: Mucous Membranes Moist - Respiratory Exam Respiratory Exam: Clear to Ausculation Bilateral, NORMAL BREATHING PATTERN - Cardiovascular Exam Cardiovascular Exam: REGULAR RHYTHM, +S1, +S2 - GI/Abdominal Exam GI & Abdominal Exam: Soft, Normal Bowel Sounds. absent: Tenderness - Extremities Exam Extremities Exam: Normal Inspection - Neurological Exam Neurological Exam: Alert, Awake, Oriented x3 - Psychiatric Exam Psychiatric exam: Normal Affect - Skin Skin Exam: Normal Color Assessment and Plan - Assessment and Plan (Free Text) Assessment: Chest Pain -resolved - stable, denies current pain - Cardiology Consult: Dr. Bhatti --> help appreciated * f/u Nuclear Stress Test Saturday03/02/19 * f/u cardio reccs * Plavix 75mg daily - Trop negative x3 - ProBNP 29.2 - ECHO: EF 60-65%; left ventricle is normal size. - Chest Xray: Mild venous congestion; patchy increased markings at the lung bases. Tortuous aorta; mild cardiomegaly History of HTN - Losartan 50mg po daily History of HLD - Crestor 5mg HS - Lipid Panel: Total Cholesterol 152; LDL 94; HDL 53; Triglycerides History of Hypothyroid s/p thyroidectomy - Levothyroixine 150mg daily - TSH 0.53; free T4 1.56 History of Diabetes - f/u hA1c - Medications * Metformin - hold * Glipizide 10mg daily * Regular Insulin SC - Accuchecks; hypoglycemia protocol Prophylaxis - SCDs - heparin SC - GI prophylaxis not indicated Disposition: pending nuclear stress results. If negative patient can be discharged home All management per Dr. Reginald Butt PGY-2
[2019-03-02] MEDS ORDERED: Pneumococcal 23-Valent Vaccine IM ONE (10:00)
[2019-03-02] MEDS: Levothyroxine 150 MCG TAB PO SCH (10:59)
[2019-03-02 11:36] LABS: BASO # 0.1 K/uL (0.0-0.2); EOS # 0.1 K/uL (0.0-0.7); EOS % 0.7 % (0.0-4.0); LYMPH # 2.6 K/uL (1.0-4.3); LYMPH % 32.4 % (20.0-40.0); MEAN CELL VOLUME 87.6 fL (81.0-99.0); MEAN CORPUSCULAR HEMOGLOBIN 29.3 pg (27.0-31.0); MEAN CORPUSCULAR HGB CONC 33.4 g/dL (33.0-37.0); MEAN PLATELET VOLUME 8.8 fL (7.2-11.7); MONO # 0.6 K/uL (0.0-0.8); MONO % 7.2 % (0.0-10.0); NEUT # 4.8 K/uL (1.8-7.0); NEUT % 58.7 % (50.0-75.0); NRBC % 0.2 % (0.0-2.0); RBC 4.78 Mil/uL (3.80-5.20); RED CELL DISTRIBUTION WIDTH 14.4 % (11.5-14.5); WHITE BLOOD COUNT 8.1 K/uL (4.8-10.8)
[2019-03-02 11:58] LABS: ALB/GLOB RATIO 1.4 (1.0-2.1); ALBUMIN 4.2 g/dL (3.5-5.0); ALT/SGPT 17 U/L (9-52); AST/SGOT 30 U/L (14-36); BLOOD UREA NITROGEN 13 mg/dL (7-17); CALCIUM 9.1 mg/dl (8.6-10.4); GFR NON-AFRICAN AMERICAN > 60
--- NOTE | 2019-03-02 14:39 | CARD ---
APPROVED REPORT Date of service: 03/02/2019 EXAM: Two-dimensional and M-mode echocardiogram with Doppler and color Doppler. Other Information Quality : GoodRhythm : INDICATION Chest Pain RISK FACTORS Hypertension Hyperlipidemia Diabetes 2D DIMENSIONS IVSd1.1 (0.7-1.1cm)LVDd3.6 (3.9-5.9cm) PWd1.1 (0.7-1.1cm)LA Ulitac06 (18-58mL) LVDs2.2 (2.5-4.0cm)FS (%) 40.0 % LVEF (%)71.5 (>50%)LVEF (Guerrero's)69 % IVC0.00 cm M-Mode DIMENSIONS Left Atrium (MM)4.14 (2.5-4.0cm)IVSd1.12 (0.7-1.1cm) Aortic Root2.69 (2.2-3.7cm)LVDd4.28 (4.0-5.6cm) Aortic Cusp Exc.1.99 (1.5-2.0cm)PWd1.15 (0.7-1.1cm) FS (%) 40 %LVDs2.55 (2.0-3.8cm) LVEF (%)70 (>50%) Mitral Valve MV E Lejfewey63.7cm/sMV A Yhkrriqg74.5cm/sE/A ratio0.7 TDI Lateral E' Peak V6.80cm/sMedial E' Peak V6.55cm/sE/Lateral E'8.8 E/Medial E'9.1 Tricuspid Valve TR Peak Dvhomuhg181pu/sTR Peak Gr.63tcWpDTGO18lrNe LEFT VENTRICLE The left ventricle is normal size. There is mild concentric left ventricular hypertrophy. The Ejection Fraction is 60-65%. There is normal LV segmental wall motion. Transmitral Doppler flow pattern is Grade I-abnormal relaxation pattern. RIGHT VENTRICLE The right ventricle is normal size. The right ventricular systolic function is normal. ATRIA The left atrium is mildly dilated. The right atrium size is normal. The interatrial septum is intact with no evidence for an atrial septal defect. AORTIC VALVE The aortic valve is mildly sclerotic. No aortic regurgitation is present. MITRAL VALVE The mitral valve is normal in structure. There is no mitral valve regurgitation noted. TRICUSPID VALVE The tricuspid valve is normal in structure. There is mild tricuspid regurgitation. Right ventricular systolic pressure is estimated at 22 mmHg. There is no pulmonary hypertension. PULMONIC VALVE The pulmonary valve is normal in structure. There is trace pulmonic valvular regurgitation. GREAT VESSELS The aortic root is normal in size. The IVC is normal in size and collapses >50% with inspiration. PERICARDIAL EFFUSION There is no pericardial effusion. <Conclusion> The left ventricle is normal size. There is mild concentric left ventricular hypertrophy. The Ejection Fraction is 60-65%. Transmitral Doppler flow pattern is Grade I-abnormal relaxation pattern. The left atrium is mildly dilated. There is mild tricuspid regurgitation. Right ventricular systolic pressure is estimated at 22 mmHg. There is no pulmonary hypertension. The aortic root is normal in size. The IVC is normal in size and collapses >50% with inspiration. There is no pericardial effusion.
--- NOTE | 2019-03-02 14:45 | CP.PCM.PN ---
Subjective - Date & Time of Evaluation Date of Evaluation: 03/02/19 - Subjective Subjective: patient seen at bedside no nausea, no vomiting, no fever, no diziness, no diarrhea, no shortness of breath for stress test today Objective - Vital Signs/Intake and Output Vital Signs (last 24 hours): Temp Pulse Resp BP Pulse Ox 98.2 F 78 20 106/69 98 03/02/19 07:00 03/02/19 13:46 03/02/19 07:00 03/02/19 11:00 03/02/19 13:46 - Medications Medications: Current Medications Acetaminophen (Tylenol 325mg Tab) 650 mg PO Q6 PRN PRN Reason: Pain, moderate (4-7) Clopidogrel Bisulfate (Plavix) 75 mg PO DAILY [facility] Last Admin: 03/02/19 10:56 Dose: 75 mg Dextrose (Glutose 15) 0 gm PO ONCE PRN; Protocol PRN Reason: Hypoglycemia Protocol Enoxaparin Sodium (Lovenox) 80 mg SC Q12H [facility] Last Admin: 03/02/19 08:00 Dose: Not Given Glipizide (Glucotrol) 10 mg PO DAILY [facility] Last Admin: 03/02/19 10:56 Dose: 10 mg Glucagon (Glucagen Diagnostic Kit) 0 mg IM STAT PRN; Protocol PRN Reason: Hypoglycemia Protocol Dextrose (Dextrose 5% In Water 1000 Ml) 1,000 mls @ 0 mls/hr IV .Q0M PRN; Protocol PRN Reason: Hypoglycemia Protocol Insulin Human Regular (Novolin R) 0 unit SC ACHS [facility]; Protocol Last Admin: 03/02/19 12:30 Dose: Not Given Levothyroxine Sodium (Synthroid) 150 mcg PO DAILY [facility] Last Admin: 03/02/19 10:59 Dose: 150 mcg Losartan Potassium (Cozaar) 50 mg PO DAILY [facility] Last Admin: 03/02/19 10:56 Dose: 50 mg Rosuvastatin Calcium (Crestor) 5 mg PO HS [facility] Last Admin: 03/01/19 22:00 Dose: 5 mg - Labs Labs: 03/02/19 11:25 03/02/19 11:25 PT 11.7 SECONDS (9.7-12.2) 02/28/19 06:50 INR 1.1 02/28/19 06:50 APTT 30 SECONDS (21-34) 02/28/19 06:50 - Constitutional Appears: Well - Head Exam Head Exam: ATRAUMATIC, NORMAL INSPECTION, NORMOCEPHALIC - Eye Exam Eye Exam: EOMI, Normal appearance, PERRL Pupil Exam: NORMAL ACCOMODATION, PERRL - ENT Exam ENT Exam: Mucous Membranes Moist, Normal Exam - Neck Exam Neck Exam: Full ROM, Normal Inspection. absent: Lymphadenopathy - Respiratory Exam Respiratory Exam: Decreased Breath Sounds - Cardiovascular Exam Cardiovascular Exam: REGULAR RHYTHM, +S1, +S2 - GI/Abdominal Exam GI & Abdominal Exam: Soft, Diminished Bowel Sounds - Rectal Exam Rectal Exam: Deferred - Neurological Exam Neurological Exam: Oriented x3 Assessment and Plan - Assessment and Plan (Free Text) Plan: medications reviewed labs reviewed vitals reviewed bella crestor dextrose glucagen diagnostic kit glucotrol glutose 15 lovenox novolin R plavis synthroid tylenol Status post stress test Status post cardiology For possible discharge if stress test is negative stress test report is pending Discharge tomorrow morning if the stress test is normal with Plavix no aspirin as patient is allergic to aspirin
--- NOTE | 2019-03-02 16:58 | CARD ---
APPROVED REPORT Date of service: 03/02/2019 Protocol: LEXISCAN Test Type: LEXISCAN STRESS Test Indications: CP Medical History: CP Target HR: 160 bpm Resting ECG: normal Resting Heart Rate: 80 bpm Resting Blood Pressure: 132/80mmHg submaximum (85%): 136 bpm TEST SUMMARY [id number]:02..1.0./.0. PREINFSNHYPERV.09:[id number]/80.0. INFUSIONDOSE 100:300.00.01.088/.0. [id number]/80.0. PROCEDURE Pharmacologic stress testing was performed using 0.4mg per 5ml of regadenoson given intravenously over 7-10 seconds. POST EXERCISE Target HR: No Max HR: 88 bpm 72% of Maximum Predicted HR: 160 bpm Exercise duration: 00:30 min:sec, 0 Stage Exercise capacity: 1.0METs Max Blood Pressure: 132/80mmHg Chest Pain: No, none Angina index: 0 Arrhythmia: Yes, atrial premature beats ST Change: No, none Deviation: 0 mm INTERPRETATION Stress EKG Conclusion: Nondiagnostic stress test EXAM: Myocardial Perfusion REST/STRESS Imaging Protocol The imaging protocol used to acquire images was Rest Tc-99m/stress Tc-99m 1 day Rest Spect myocardial perfusion imaging was performed in supine position 45 minutes following the injection of 12.8 mCi of Tc-99 Myoview. Gated Stress Spect was performed 45 minutes after intravenous 32.1 mCi Tc-99 Myoview injection. The images were gated to evaluate regional wall motion and calculate ventricular ejection fraction.Images were reconstructed using backfilter projection method in short horizontal and verticle long axis. Spect slices were generated. RESTING DATA EDV56.94uaGS1.10L/min ESV16.00mlMyocardial Vpjk141.00g Av. Heart Rate78.00bpm EF71.00% STRESS DATA EDV44.29ycJR9.20L/min ESV9.00mlMyocardial Mass84.00g EF80.00% Regional WT score at stress:0.00 Regional WM score at stress:0.00 Summed WT score at stress:0.00 Av. Heart Rate91.00bpmSummed WM score at stress:0.00 LV Perf. Quant 17 Seg. SSS2.00 17 Seg. SRS0.00 17 Seg. SDS2.00 Stress Defect Extent (% LAD)0.00Rest Defect Extent (% LAD)0.00Rev. Defect Extent (% LAD)0.00 Stress Defect Extent (% LCX)8.80Rest Defect Extent (% LCX)0.00Rev. Defect Extent (% LCX)0.00 Stress Defect Extent (% RCA)0.00Rest Defect Extent (% RCA)0.00Rev. Defect Extent (% RCA)0.00 Stress Defect Extent (% SARAY)1.50Rest Defect Extent (% SARAY)0.00Rev. Defect Extent (% SARAY)0.00 Left Ventricle LV Size/Shape: The left ventricle is normal size. LV Function:Left ventricle systolic function is normal. The Ejection Fraction is 80% up from 71% at rest. Regional Wall Motion:No regional wall motion abnormalities noted. Metabolism/Perfusion There are no perfusion/metabolism defects. Conclusion 1. Left ventricle systolic function is normal. 2. The Ejection Fraction is 80% up from 71% at rest. 3. No regional wall motion abnormalities noted. 4. No Ischemia.
--- NOTE | 2019-03-02 21:01 | CP.PCM.PN ---
Subjective - Date & Time of Evaluation Date of Evaluation: 03/02/19 Time of Evaluation: 21:00 - Subjective Subjective: Patient s/p Stress test Normal nuclear stress test No further cardiac work up needed at this time Thank you Objective - Vital Signs/Intake and Output Vital Signs (last 24 hours): Temp Pulse Resp BP Pulse Ox 97.5 F L 81 20 113/73 97 03/02/19 16:00 03/02/19 20:16 03/02/19 16:00 03/02/19 16:00 03/02/19 19:38 - Medications Medications: Current Medications Acetaminophen (Tylenol 325mg Tab) 650 mg PO Q6 PRN PRN Reason: Pain, moderate (4-7) Clopidogrel Bisulfate (Plavix) 75 mg PO DAILY [facility] Last Admin: 03/02/19 10:56 Dose: 75 mg Dextrose (Glutose 15) 0 gm PO ONCE PRN; Protocol PRN Reason: Hypoglycemia Protocol Glipizide (Glucotrol) 10 mg PO DAILY [facility] Last Admin: 03/02/19 10:56 Dose: 10 mg Glucagon (Glucagen Diagnostic Kit) 0 mg IM STAT PRN; Protocol PRN Reason: Hypoglycemia Protocol Heparin Sodium (Porcine) (Heparin) 5,000 units SC Q8 [facility] Dextrose (Dextrose 5% In Water 1000 Ml) 1,000 mls @ 0 mls/hr IV .Q0M PRN; Protocol PRN Reason: Hypoglycemia Protocol Insulin Human Regular (Novolin R) 0 unit SC ACHS [facility]; Protocol Last Admin: 03/02/19 16:48 Dose: Not Given Levothyroxine Sodium (Synthroid) 150 mcg PO DAILY [facility] Last Admin: 03/02/19 10:59 Dose: 150 mcg Losartan Potassium (Cozaar) 50 mg PO DAILY [facility] Last Admin: 03/02/19 10:56 Dose: 50 mg Rosuvastatin Calcium (Crestor) 5 mg PO HS [facility] Last Admin: 03/01/19 22:00 Dose: 5 mg - Labs Labs: 03/02/19 11:25 03/02/19 11:25 PT 11.7 SECONDS (9.7-12.2) 02/28/19 06:50 INR 1.1 02/28/19 06:50 APTT 30 SECONDS (21-34) 02/28/19 06:50
[2019-03-03 07:49] VITALS: BP 110/72; RESP 20; TEMP 97.4; O2SAT 97
[2019-03-03 07:52] VITALS: PULSE 86
[2019-03-03 07:57] LABS: BASO # 0.1 K/uL (0.0-0.2); BASO % 0.7 % (0.0-2.0); EOS # 0.1 K/uL (0.0-0.7); EOS % 1.4 % (0.0-4.0); HEMOGLOBIN 13.2 g/dL (11.0-16.0); LYMPH # 2.8 K/uL (1.0-4.3); LYMPH % 34.2 % (20.0-40.0); MEAN CELL VOLUME 87.9 fL (81.0-99.0); MEAN CORPUSCULAR HEMOGLOBIN 28.9 pg (27.0-31.0); MEAN CORPUSCULAR HGB CONC 32.9 g/dL (33.0-37.0); MONO # 0.6 K/uL (0.0-0.8); MONO % 7.5 % (0.0-10.0); NEUT # 4.7 K/uL (1.8-7.0); NEUT % 56.2 % (50.0-75.0); RBC 4.56 Mil/uL (3.80-5.20); RED CELL DISTRIBUTION WIDTH 14.2 % (11.5-14.5); WHITE BLOOD COUNT 8.3 K/uL (4.8-10.8)
[2019-03-03] MEDS: (Novolin R) Insulin Human Regular 100 units/ml vial SC SCH (08:00)
[2019-03-03 08:16] LABS: ALB/GLOB RATIO 1.3 (1.0-2.1); ALBUMIN 3.7 g/dL (3.5-5.0); ALT/SGPT 25 U/L (9-52); AST/SGOT 26 U/L (14-36); BLOOD UREA NITROGEN 16 mg/dL (7-17); GFR NON-AFRICAN AMERICAN > 60
--- NOTE | 2019-03-03 09:26 | CP.PCM.DIS ---
Provider - Provider Date of Admission: 02/28/19 08:56 Attending physician: Andre Traylor MD Consults: 02/28/19 10:06 Cardiology Consult Routine Comment: Consulting Provider: Deangelo Bhatti Consulting Physician: Deangelo Bhatti Reason for Consult: Chest Pain; Hx HTN; DM; HLD Time Spent in preparation of Discharge (in minutes): 15 Hospital Course - Lab Results Lab Results: Most Recent Lab Values WBC 8.3 K/uL (4.8-10.8) 03/03/19 07:48 RBC 4.56 Mil/uL (3.80-5.20) 03/03/19 07:48 Hgb 13.2 g/dL (11.0-16.0) 03/03/19 07:48 Hct 40.1 % (34.0-47.0) 03/03/19 07:48 MCV 87.9 fL (81.0-99.0) 03/03/19 07:48 MCH 28.9 pg (27.0-31.0) 03/03/19 07:48 MCHC 32.9 g/dL (33.0-37.0) L 03/03/19 07:48 RDW 14.2 % (11.5-14.5) 03/03/19 07:48 Plt Count 303 K/uL (130-400) 03/03/19 07:48 MPV 9.0 fL (7.2-11.7) 03/03/19 07:48 Neut % (Auto) 56.2 % (50.0-75.0) 03/03/19 07:48 Lymph % (Auto) 34.2 % (20.0-40.0) 03/03/19 07:48 Borden % (Auto) 7.5 % (0.0-10.0) 03/03/19 07:48 Eos % (Auto) 1.4 % (0.0-4.0) 03/03/19 07:48 Baso % (Auto) 0.7 % (0.0-2.0) 03/03/19 07:48 Neut # (Auto) 4.7 K/uL (1.8-7.0) 03/03/19 07:48 Lymph # (Auto) 2.8 K/uL (1.0-4.3) 03/03/19 07:48 Borden # (Auto) 0.6 K/uL (0.0-0.8) 03/03/19 07:48 Eos # (Auto) 0.1 K/uL (0.0-0.7) 03/03/19 07:48 Baso # (Auto) 0.1 K/uL (0.0-0.2) 03/03/19 07:48 PT 11.7 SECONDS (9.7-12.2) 02/28/19 06:50 INR 1.1 02/28/19 06:50 APTT 30 SECONDS (21-34) 02/28/19 06:50 Sodium 139 mmol/L (132-148) 03/03/19 07:45 Potassium 4.3 mmol/L (3.6-5.2) 03/03/19 07:45 Chloride 104 mmol/L (98-107) 03/03/19 07:45 Carbon Dioxide 27 mmol/L (22-30) 03/03/19 07:45 Anion Gap 12 (10-20) 03/03/19 07:45 BUN 16 mg/dL (7-17) 03/03/19 07:45 Creatinine 0.8 mg/dL (0.7-1.2) 03/03/19 07:45 Est GFR ( Amer) > 60 03/03/19 07:45 Est GFR (Non-Af Amer) > 60 03/03/19 07:45 POC Glucose (mg/dL) 167 mg/dL (65-110) H 03/03/19 06:08 Random Glucose 163 mg/dL (65-105) H 03/03/19 07:45 Hemoglobin A1c 7.7 % (4.2-6.5) H 02/28/19 11:41 Calcium 9.0 mg/dl (8.6-10.4) 03/03/19 07:45 Phosphorus 4.6 mg/dL (2.5-4.5) H 03/03/19 07:45 Magnesium 2.0 mg/dL (1.6-2.3) 03/03/19 07:45 Total Bilirubin 0.2 mg/dL (0.2-1.3) 03/03/19 07:45 AST 26 U/L (14-36) 03/03/19 07:45 ALT 25 U/L (9-52) 03/03/19 07:45 Alkaline Phosphatase 69 U/L (38-126) 03/03/19 07:45 Total Creatine Kinase 44 U/L (30-135) 03/01/19 00:15 CK-MB (Mass) 0.28 ng/mL (0.0-3.38) 03/01/19 00:15 Troponin I < 0.0120 ng/mL (0.00-0.120) 03/01/19 00:15 NT-Pro-B Natriuret Pep 29.2 pg/mL (0-900) 02/28/19 11:41 Total Protein 6.7 g/dL (6.3-8.3) 03/03/19 07:45 Albumin 3.7 g/dL (3.5-5.0) 03/03/19 07:45 Globulin 2.9 gm/dL (2.2-3.9) 03/03/19 07:45 Albumin/Globulin Ratio 1.3 (1.0-2.1) 03/03/19 07:45 Triglycerides 92 mg/dL (0-149) 02/28/19 11:41 Cholesterol 152 mg/dL (0-199) 02/28/19 11:41 LDL Cholesterol Direct 94 mg/dL (0-129) 02/28/19 11:41 HDL Cholesterol 53 mg/dL (30-70) 02/28/19 11:41 Free T4 1.56 ng/dL (0.78-2.19) 02/28/19 11:41 TSH 3rd Generation 0.53 mIU/L (0.46-4.68) 02/28/19 11:41 - Hospital Course Hospital Course: hest Pain -resolved - stable, denies current pain - Cardiology Consult: Dr. Bhatti --> help appreciated * f/u Nuclear Stress Test Saturday03/02/19 * f/u cardio reccs * Plavix 75mg daily - Trop negative x3 - ProBNP 29.2 - ECHO: EF 60-65%; left ventricle is normal size. - Chest Xray: Mild venous congestion; patchy increased markings at the lung bases. Tortuous aorta; mild cardiomegaly History of HTN - Losartan 50mg po daily History of HLD - Crestor 5mg HS - Lipid Panel: Total Cholesterol 152; LDL 94; HDL 53; Triglycerides History of Hypothyroid s/p thyroidectomy - Levothyroixine 150mg daily - TSH 0.53; free T4 1.56 History of Diabetes - f/u hA1c - Medications * Metformin - hold * Glipizide 10mg daily * Regular Insulin SC - Accuchecks; hypoglycemia protocol Prophylaxis - SCDs - heparin SC - GI prophylaxis not indicated Disposition: pending nuclear stress results which is negative cleared by cardio as per last night note by cardio as negative patient can be discharged home full stress report in chart. Discharge Exam - Head Exam Head Exam: ATRAUMATIC, NORMAL INSPECTION, NORMOCEPHALIC Discharge Plan - Follow Up Plan Condition: STABLE Disposition: HOME/ ROUTINE Instructions: Type 2 Diabetes, High Blood Pressure (DC), Chest Pain (DC) Referrals: Deangelo Bhatti MD [Staff Provider] - Phuong Traylor MD [Staff Provider] -
--- NOTE | 2019-03-03 09:59 | CP.PCM.PN ---
Subjective - Date & Time of Evaluation Date of Evaluation: 03/03/19 Time of Evaluation: 08:40 - Subjective Subjective: Medicine progress note ( Dr. Ale Traylor's service) Patient was seen and examined at bedside, while sitting in a chair comfortably. Patient states that she is doing better and denies any acute issues or complaints. Patient denies any symptoms of chest pain at rest or with exertion, palpitations, shortness of breath, dizziness, syncope, shortness of breath, diaphoresis, nausea and vomiting. Objective - Vital Signs/Intake and Output Vital Signs (last 24 hours): Temp Pulse Resp BP Pulse Ox 97.4 F L 86 20 110/72 97 03/03/19 07:48 03/03/19 07:50 03/03/19 07:48 03/03/19 07:48 03/03/19 07:52 Intake and Output: 03/03/19 03/03/19 06:59 18:59 Intake Total 300 Balance 300 - Medications Medications: Current Medications Acetaminophen (Tylenol 325mg Tab) 650 mg PO Q6 PRN PRN Reason: Pain, moderate (4-7) Clopidogrel Bisulfate (Plavix) 75 mg PO DAILY [facility] Last Admin: 03/03/19 09:14 Dose: 75 mg Dextrose (Glutose 15) 0 gm PO ONCE PRN; Protocol PRN Reason: Hypoglycemia Protocol Glipizide (Glucotrol) 10 mg PO DAILY [facility] Last Admin: 03/03/19 09:14 Dose: 10 mg Glucagon (Glucagen Diagnostic Kit) 0 mg IM STAT PRN; Protocol PRN Reason: Hypoglycemia Protocol Heparin Sodium (Porcine) (Heparin) 5,000 units SC Q8 [facility] Last Admin: 03/03/19 05:15 Dose: Not Given Dextrose (Dextrose 5% In Water 1000 Ml) 1,000 mls @ 0 mls/hr IV .Q0M PRN; Protocol PRN Reason: Hypoglycemia Protocol Insulin Human Regular (Novolin R) 0 unit SC ACHS [facility]; Protocol Last Admin: 03/03/19 08:00 Dose: Not Given Levothyroxine Sodium (Synthroid) 150 mcg PO 0600 [facility] Losartan Potassium (Cozaar) 50 mg PO DAILY [facility] Last Admin: 03/03/19 09:15 Dose: 50 mg Rosuvastatin Calcium (Crestor) 5 mg PO HS [facility] Last Admin: 03/02/19 21:45 Dose: Not Given - Labs Labs: 03/03/19 07:48 03/03/19 07:45 PT 11.7 SECONDS (9.7-12.2) 02/28/19 06:50 INR 1.1 02/28/19 06:50 APTT 30 SECONDS (21-34) 02/28/19 06:50 - Constitutional Appears: Well, No Acute Distress - Head Exam Head Exam: ATRAUMATIC, NORMAL INSPECTION - Eye Exam Eye Exam: EOMI, Normal appearance - ENT Exam ENT Exam: Mucous Membranes Moist - Respiratory Exam Respiratory Exam: Clear to Ausculation Bilateral, NORMAL BREATHING PATTERN. absent: Prolonged Expiratory Phase, Rhonchi, Wheezes, Respiratory Distress - Cardiovascular Exam Cardiovascular Exam: REGULAR RHYTHM, +S1, +S2. absent: Tachycardia, Clicks, Diastolic murmur, Gallop, Murmur - GI/Abdominal Exam GI & Abdominal Exam: Soft, Normal Bowel Sounds. absent: Distended, Firm, Guarding, Rigid, Tenderness - Extremities Exam Extremities Exam: Full ROM, Normal Capillary Refill, Normal Inspection. absent: Calf Tenderness, Pedal Edema - Neurological Exam Neurological Exam: Alert, Awake, Oriented x3 - Psychiatric Exam Psychiatric exam: Normal Affect - Skin Skin Exam: Normal Color Assessment and Plan (1) Chest pain Assessment & Plan: Consultation: - Cardiology, Dr. Bhatti,----> help appreciated * Normal nuclear stress test and no further cardiac work up needed at this time (03/02/19) Labs and imaging: - Trop negative x3 - ProBNP 29.2 - ECHO: EF 60-65%; left ventricle is normal size. Please refer to the EMR for full impression - EKG: NSR, Non-specific T-wave abnormality in leads V2 and V3. No ST changes X3 - Chest X-ray: Mild venous congestion; patchy increased markings at the lung bases. Tortuous aorta; mild cardiomegaly Medications: * Plavix 75mg PO daily Status: Acute (2) Hypertension Assessment & Plan: Controlled with medications -Cozaar 50mg PO daily Status: Acute (3) Diabetes mellitus Assessment & Plan: HgbA1C (02/28/2019): 7.7 Glipizide 10mg PO daily ISS (Medium Dose) Hypoglycemia protocol Accuchecks Status: Acute (4) Hyperlipidemia Assessment & Plan: - Lipid Panel (02/28/19): Total Cholesterol 152; LDL 94; HDL 53; Triglycerides:92 - Crestor 5mg HS Status: Acute (5) Hypothyroidism associated with surgical procedure Assessment & Plan: S/p thyroidectomy - TSH 0.53; free T4 1.56 (02/28/19) - Levothyroixine 150mg daily Status: Acute (6) Prophylactic measure Assessment & Plan: DVT: SCDS, heparin 5,000units SC Q8H GI: Not indicated Disposition: No further cardiac work-up due to normal ECHO, Stress test and Negative troponin and no EKG changes Patient is to be discharge home Please continue with your home medications as prescribed by your PMD Please follow up with your PMD in 1 week post discharge Status: Acute
[2019-03-03] MEDS ORDERED: Levothyroxine 150 MCG TAB PO SCH (10:00)
--- NOTE | 2019-03-03 15:37 | CARD ---
APPROVED REPORT Date of service: 02/28/2019 EKG Measurement Heart [id number] <Conclusion> Normal sinus rhythm Nonspecific T wave abnormality Abnormal ECG
--- NOTE | 2019-03-03 15:37 | CARD ---
APPROVED REPORT Date of service: 02/28/2019 EKG Measurement Heart [id number] <Conclusion> Normal sinus rhythm Nonspecific T wave abnormality Abnormal ECG
--- NOTE | 2019-03-03 15:38 | CARD ---
APPROVED REPORT Date of service: 02/28/2019 EKG Measurement Heart [id number] <Conclusion> Normal sinus rhythm Normal ECG
== END 2019-03-03 12:09 | disposition home or self-care (01) ==
LOC: C.ER 06:22 → C.5S 08:56
PROVIDERS: ADMIT Internal Medicine Nephrology; ATTEND Internal Medicine Nephrology
DX: R07.89 Other chest pain (principal); E78.5 Hyperlipidemia, unspecified; I10 Essential (primary) hypertension; E11.9 Type 2 diabetes mellitus without complications; Z87.891 Personal history of nicotine dependence; E89.0 Postprocedural hypothyroidism
CPT/HCPCS: 36415; 71045; 78452; 80053; 80061; 82948; 83036; 83735; 83880; 84100; 84439; 84443; 84484; 85025; 85610; 85730; 93005; 93017; 93306; 96372; 96374; 97110; 97161; 99285; A9502; C9113; G0378; G8978; G8979; G8980; J1650; J2785